=== PATIENT | male | born 1950 | race Caucasian/White ===

== ENCOUNTER 2018-12-01 16:01 | Day surgery (SDC) | payer OTHER, BC ==
[2018-12-01] MEDS ORDERED: Dexamethasone IV* 4 MG/ML 1 ML (4 MG) IV SLOW PU ONE (16:20)
[2018-12-01] MEDS ORDERED: Buffered Lidocaine 1% SYRIN* 1 ML/SYRINGE INTRADERM ONE (16:20)
[2018-12-01] MEDS ORDERED: Iohexol 180 (CONTRAST) 10 ML SDV IV ONE (16:20)
[2018-12-01] MEDS ORDERED: Metoclopramide IV* 5 MG/ML 2 ML VIAL IV SLOW PU ONE (16:20)
[2018-12-01] MEDS ORDERED: fentaNYL* 50 MCG/ML 2 ML VIAL (100 MCG VIAL) ONE (16:35)
[2018-12-01] MEDS ORDERED: Midazolam* 1 MG/ML 2 ML VIAL (2 MG) ONE ×2 (16:35→17:43)
[2018-12-01] MEDS ORDERED: Chloroprocaine 2%* 20 ML VIAL ONE (16:38)
[2018-12-01] MEDS ORDERED: Dexamethasone IV* 4 MG/ML 1 ML (4 MG) ONE (16:43)
[2018-12-01] MEDS ORDERED: Metoclopramide IV* 5 MG/ML 2 ML VIAL ONE (16:43)
[2018-12-01] MEDS ORDERED: cefTRIAXone(*) 2 GM ADDV.VIAL IVPB ONE (16:59)
[2018-12-01] MEDS ORDERED: Lactated Ringers 1000 ML Bag* 1,000 ML IV SCH ×2 (17:00→18:00)
[2018-12-01] MEDS ORDERED: Gentamicin ADULT (*) 160 MG in NS 0.9% 100 ML* 100 ML IVPB ONE (17:30)
[2018-12-01] MEDS ORDERED: cefTRIAXone(*) 2 GM in NS 0.9% 100 ML* 100 ML IVPB ONE (17:30)
[2018-12-01] MEDS ORDERED: Ondansetron INJ* 2 MG/ML VIAL IV PRN (18:01)
[2018-12-01] MEDS ORDERED: fentaNYL* 50 MCG/ML 2 ML VIAL (100 MCG VIAL) IV PRN (18:01)
[2018-12-01] MEDS ORDERED: Naloxone* 0.4 MG/ML 1 ML VIAL IV PRN (18:01)
[2018-12-01] MEDS ORDERED: oxyCODONE/Acetamin 5/325 MG* TAB PO PRN (18:01)
[2018-12-01] MEDS ORDERED: Acetaminophen TAB* 325 MG PO PRN (18:01)
[2018-12-01 19:53] VITALS: BP 149/85
--- NOTE | 2018-12-01 23:08 | OP ---
CC: Dr. Alon Porter * DATE OF OPERATION: 12/01/18 - [facility] DATE OF : 50 SURGEON: Walter Mccarthy MD. ANESTHESIOLOGIST: Dr. Padilla. ANESTHESIA: Spinal. PRE-OP DIAGNOSES: 1. Calculus, left ureter. 2. Left hydronephrosis. POST-OP DIAGNOSES: 1. Calculus, left ureter. 2. Left hydronephrosis. 3. Multiple small bladder calculi (secondary to BPH). OPERATIVE PROCEDURES: 1. Cystoscopy, left retrograde pyelogram, left ureteroscopy, laser lithotripsy of left ureteral calculus, and removal of calculus fragments and left stent insertion. 2. Removal of bladder calculi. COMPLICATIONS: None. STENT USED: 7-Sinhala stent, left ureter. INDICATIONS: Michael Zhong is a 68-year-old gentleman with intermittent left flank pain secondary to a left ureteral calculus. He is scheduled to leave for a trip out of the country in 2 days and is now being brought in for left ureteroscopy, possible laser and stent insertion in an effort to treat the stone. OPERATIVE FINDINGS: 1. Markedly enlarged prostate. 2. Multiple tiny bladder calculi. 3. Obstructing calculus in left distal ureter approximately 6 to 7 mm. POSTOPERATIVE CONDITION: Stable. DESCRIPTION OF PROCEDURE: After induction of spinal anesthesia, the patient was placed in dorsal lithotomy position. Sequential compression devices were in place and functioning. Initial cystoscopy revealed a significantly enlarged obstructing prostate and multiple tiny bladder calculi. Clear efflux was noted from the right orifice. There was no efflux noted from the left orifice suggesting a high-grade obstruction. A guidewire was introduced into the left ureter. Once the wire was advanced proximally, there was drainage of a significant amount of cloudy-appearing urine from the left ureter. Limited retrograde pyelogram revealed mild fullness of the left collecting system. A 6-Sinhala semi-rigid ureteroscope was introduced and advanced into the left ureter under direct vision. In the distal ureter, a few centimeters above the ureterovesical junction, an approximately 7 mm calculus was noted to be impacted with some surrounding edema and inflammation. Using a 550 micron holmium laser, this was successfully broken up into multiple fragments and all of the sizeable fragments were retrieved using a 3 pronged grasper. A 7-Sinhala stent was positioned under fluoroscopy with good proximal and distal positioning obtained. At the end of the procedure using an EllCrossfader evacuator, all of the bladder calculi were irrigated out. A final look confirmed no remaining bladder calculi. An 18- Sinhala Schulte was placed for temporary bladder drainage. The patient tolerated the procedure satisfactorily and was transferred back to the recovery area in stable condition. [id number] #: [id number] MTDD
[2018-12-04 00:43] LABS: Interpretation 100% Uric acid
== END 2018-12-01 19:55 | disposition home or self-care (01) ==
LOC: OR 16:01
PROVIDERS: ATTEND Urology
DX: N13.2 Hydronephrosis with renal and ureteral calculous obstruction (principal); N21.0 Calculus in bladder; N40.0 Benign prostatic hyperplasia without lower urinary tract symptoms; E78.5 Hyperlipidemia, unspecified
CPT/HCPCS: 74420; 82365; 88300; C1876; J0696; J1100; J1580; J2250; J2400; J2765; J3010